=== PATIENT | male | born 1995 | race Caucasian/White ===

== ENCOUNTER 2021-12-25 08:46 | Emergency (ER) | payer OTHER ==
[~2021-12-25] VITALS: Ht 175.3 cm; Wt 83.9 kg
[2021-12-25 08:51] VITALS: BP 105/88
[2021-12-25 10:39] LABS: BILIRUBIN,URINE SMALL (NEGATIVE); COLOR,URINE DARK YELLOW (YELLOW); LEUKOCYTE ESTERASE ,URINE NEGATIVE (NEGATIVE); NITRITE, URINE NEGATIVE (NEGATIVE); PROTEIN,URINE TRACE mg/dl (NEGATIVE); UGLUCOSE NEGATIVE (NEGATIVE); UROBILINOGEN,URINE 0.2 EU/dL (0.2)
--- NOTE | 2021-12-25 10:45 | NUR ---
No acute changes- Patient discharged to home in stable condition. Written and verbal after care instructions given. Patient verbalizes understanding of instruction.
[2021-12-25] MEDS ORDERED: CYCL5TAB PO (11:00)
[2021-12-25] MEDS ORDERED: CYCLOBENZAPRINE 10 MG TABLET PO ONE (11:00)
[2021-12-25] MEDS ORDERED: IBUPROFEN 600 MG TABLET PO ONE (11:00)
[2021-12-25] MEDS ORDERED: OXYC5CAP18 PO (11:00)
[2021-12-25] MEDS ORDERED: IBUP-1955 PO (11:00)
[2021-12-25] MEDS ORDERED: CYCLOBENZAPRINE 10 MG TABLET ONE (11:08)
[2021-12-25] MEDS ORDERED: IBUPROFEN 600 MG TABLET ONE (11:08)
[2021-12-25 12:14] LABS: RBC,URINE NONE SEEN /HPF (0-2); WBC,URINE 0-2 /HPF (0-3)
[2021-12-25 12:15] LABS: BACTERIA,URINE Rare /HPF (None Seen); SQUAMOUS EPITHELIAL CELL,UR Few /HPF (None Seen)
== END 2021-12-25 11:18 | disposition home or self-care (01) ==
LOC: ER 08:53
DX: S39.012A Strain of muscle, fascia and tendon of lower back, initial encounter (principal); X58.XXXA Exposure to other specified factors, initial encounter; Y93.89 Activity, other specified; Y92.89 Other specified places as the place of occurrence of the external cause; Y99.8 Other external cause status
CPT/HCPCS: 81001